=== PATIENT | female | born 1995 | race American Indian/Alaskan Native ===

== ENCOUNTER 2018-11-19 17:47 | Emergency (ER) | payer MEDICAID ==
--- NOTE | 2018-11-19 18:54 | EDM.PDOC ---
ED HPI GENERAL MEDICAL PROBLEM - General Chief Complaint: Lower Extremity Injury/Pain Stated Complaint: LEFT ANKLE INJURY/FALL Time Seen by Provider: 11/19/18 18:40 Source of Information: Reports: Patient History Limitations: Reports: No Limitations - History of Present Illness INITIAL COMMENTS - FREE TEXT/NARRATIVE: 23-year-old female with a left ankle injury since yesterday when she missed a step and turned her ankle. It's swollen, bruised, she is unable to bear weight. No other injury. Onset: Sudden Duration: Day(s): (Injury occurred yesterday) Location: Reports: Lower Extremity, Left Associated Symptoms: Reports: No Other Symptoms Left Ankle Pain Score (Numeric/FACES): 10 - Related Data Allergies Allergy/AdvReac Type Severity Reaction Status Date / Time amoxicillin Allergy Rash Verified 11/19/18 18:16 Tetracyclines Allergy Rash Verified 11/19/18 18:16 Past Medical History Other Musculoskeletal History: partial amputation of right big toe. Social & Family History - Tobacco Use Smoking Status *Q: Heavy Tobacco Smoker Years of Tobacco use: 10 Packs/Tins Daily: 0.5 - Caffeine Use Caffeine Use: Reports: Energy Drinks - Recreational Drug Use Recreational Drug Use: Yes Recreational Drug Type: Reports: Marijuana/Hashish Review of Systems - Review of Systems Review Of Systems: See Below Constitutional: Denies: Fever Respiratory: Reports: No Symptoms Cardiovascular: Reports: No Symptoms GI/Abdominal: Reports: No Symptoms Skin: Reports: Bruising Psychiatric: Reports: No Symptoms ED EXAM, GENERAL - Physical Exam Exam: See Below Exam Limited By: No Limitations General Appearance: Alert, Mild Distress Respiratory/Chest: No Respiratory Distress Cardiovascular: Regular Rate, Rhythm Extremities: Other (Exam is otherwise limited to the lower extremities. She has edema and bruising across the lateral aspect of the left lower leg and ankle, and exquisite tenderness to palpation of the distal fibula area the distal tibia is much less tender. She has significant pain with any passive movement of the foot on the left.) Course - Vital Signs Last Recorded V/S: Last Vital Signs Temp 97.4 F 11/19/18 18:13 Pulse 105 H 11/19/18 18:13 Resp 16 11/19/18 18:13 BP 156/100 H 11/19/18 18:13 Pulse Ox 94 L 11/19/18 18:13 - Orders/Labs/Meds Orders: Active Orders 24 hr Category Date Time Status DME for Discharge [COMM] Stat Oth 11/19/18 19:05 Ordered - Re-Assessments/Exams Free Text/Narrative Re-Assessment/Exam: 11/19/18 19:04 An x-ray of the left ankles obtained that showed a slightly displaced transverse fracture of the distal fibula. Patient was placed in a cam walker and given crutches, told to wear the boot at all times and avoid weightbearing and recheck with Gene Zhong, orthopedic surgery on Friday next week. 11/19/18 19:27 Patient will be discharged with 10 hydrocodone for extra pain control, will take ibuprofen and elevate foot and call the clinic for an appointment time on Friday. Departure - Departure Time of Disposition: 20:16 Disposition: Home, Self-Care 01 Clinical Impression: Fracture of fibula, distal Qualifiers: Encounter type: initial encounter Fracture type: closed Fracture morphology: other fracture Laterality: left Qualified Code(s): S82.832A - Other fracture of upper and lower end of left fibula, initial encounter for closed fracture - Discharge Information Instructions: Tibial and Fibular Fractures Referrals: PCP,None [Primary Care Provider] - Forms: ED Department Discharge Care Plan Goals: Wear boot as often as possible, elevate foot when able and use anti- inflammatories for pain control. Add stronger pain medication sparingly if needed. Call orthopedic clinic tomorrow or Friday for an appointment time on Friday. - My Orders Last 24 Hours: My Active Orders 11/19/18 19:05 DME for Discharge [COMM] Stat - Assessment/Plan Last 24 Hours: My Active Orders 11/19/18 19:05 DME for Discharge [COMM] Stat
--- NOTE | 2018-11-19 19:17 | CRLCR ---
INDICATION: Trauma TECHNIQUE: Three views left ankle COMPARISON: None FINDINGS: Bones: Transverse lateral malleoli fracture. Joint spaces: Unremarkable. Soft tissues: Lateral ankle edema. IMPRESSION: Transverse lateral malleolar fracture with adjacent edema. Dictated by Jose Perez MD @ 11/19/2018 7:15:03 PM Dictated by: Jose Perez MD @ 11/19/2018 19:15:08 (Electronically Signed)
== END 2018-11-19 19:45 | disposition home or self-care (01) ==
LOC: JP.ED 17:47
DX: S82.832A Other fracture of upper and lower end of left fibula, initial encounter for closed fracture (principal); Z88.1 Allergy status to other antibiotic agents; F17.210 Nicotine dependence, cigarettes, uncomplicated; W10.9XXA Fall (on) (from) unspecified stairs and steps, initial encounter
CPT/HCPCS: 73610-LT; 99283-25